=== PATIENT | female | born 1940 | race Caucasian/White ===

== ENCOUNTER 2016-10-04 15:19 | Emergency (ER) | payer MEDICAID ==
[~2016-10-04] VITALS: Wt 60.0 kg
[~2016-10-04 15:19] MED LIST: IBUP200C11
[2016-10-04] MEDS ORDERED: ALBU18HF INHALATION (16:45)
[2016-10-04] MEDS ORDERED: AZIT250T94 PO (16:45)
[2016-10-04] MEDS ORDERED: ACET325T33 PO (16:45)
--- NOTE | 2016-10-04 16:49 | ERD ---
ER Documentation Chief Complaint Date/Time DATE: 10/04/16 TIME: 16:47 Chief Complaint FEVER AND COUGH FOR THE PAST 3 WKS. NO DISTRESS. HEADACHE NOTED HPI Patient is a 76-year-old female with hypertension who presents with cough. She has had 2 weeks of cough that has productive sputum with phlegm. She has fever as well. She is ambulatory and in no respiratory distress. She tried broncholin without any help. She was brought in by her daughter. She does not currently have a primary doctor. ROS All systems reviewed and are negative except as per history of present illness. Medications Home Meds Active Scripts Albuterol Sulfate* (Ventolin HFA*) 18 Gm Hfa.aer.ad, 2 PUFF INHALATION Q4H, #1 INHALER Prov:KAY BANG MD 10/04/16 Acetaminophen* (Tylenol*) 325 Mg Tablet, 2 TAB PO Q8 Y for PAIN AND OR ELEVATED TEMP, #20 TAB Prov:KAY BANG MD 10/04/16 Azithromycin* (Zithromax*) 250 Mg Tablet, 250 MG PO DAILY for 4 Days, TAB Prov:KAY BANG MD 10/04/16 Reported Medications Ibuprofen* (Advil*) 200 Mg Capsule 09/18/10 Allergies Allergies: Coded Allergies: Penicillins (Verified Allergy, Unknown, RASHES, GI UPSET, 09/18/10) PMhx/Soc Positive for hypertension Anesthesia Reaction: No Hx Neurological Disorder: No Hx Respiratory Disorders: No Hx Cardiac Disorders: No Hx Psychiatric Problems: No Hx Miscellaneous Medical Probl: No Hx Alcohol Use: No Hx Substance Use: No Hx Tobacco Use: No FmHx Family History: diabetes Physical Exam Vitals Vital Signs Date Time Temp Pulse Resp B/P Pulse Ox O2 Delivery O2 Flow Rate FiO2 10/04/16 16:04 100.9 102 21 138/79 98 Physical Exam Const: No acute distress Head: Atraumatic Eyes: Normal Conjunctiva ENT: Normal External Ears, Nose and Mouth. Neck: Full range of motion..~ No meningismus. Resp: Clear lung on the right, the patient has some mild wheezing to the left lung diffusely, there is no retractions or accessory muscle use Cardio: Regular rate and rhythm, no murmurs Abd: Soft, non tender, non distended. Normal bowel sounds Skin: No petechiae or rashes Back: No midline or flank tenderness Ext: No cyanosis, or edema Neur: Awake and alert Psych: Normal Mood and Affect Results 24 hrs Current Medications Medications (Trade) Dose Ordered Sig/Lona Route PRN Reason Start Time Stop Time Status Last Admin Dose Admin Acetaminophen (Tylenol Tab) 650 mg ONCE ONCE PO 10/04/16 17:00 3 17:01 Azithromycin (Zithromax) 500 mg ONCE ONCE PO 10/04/16 17:00 10/04/16 17:01 Procedures/[facility] Patient is a 76-year-old female who presents with what appears to be an acute bronchitis. She has fever and cough with wheezing in the left lung. The patient has no respiratory distress or accessory muscle use. She is well- appearing and ambulatory in the ER. I believe outpatient management is appropriate. The patient will be given Tylenol for her fever as well as a first dose of Zithromax. I will discharge the patient with a prescription for Tylenol, Zithromax, and Ventolin. At this point I doubt pneumonia or pulmonary embolism. I believe outpatient management is appropriate but the patient will need close follow-up with the local clinics within 24-48 hours. She can return sooner for any worsening symptoms. The family understands the plan and is okay for discharge at this time. Departure Diagnosis: Primary Impression: Bronchitis Additional Impression: Cough Condition: Fair Patient Instructions: Bronchitis With Wheezing (Adult) [facility] Usted se ribeiro hecho un examen mdico de control que le indica que no est en yg condicin que requiera tratamiento urgente en el Departamento de Emergencia. Un estudio ms profundo y el tratamiento de cherry condicin pueden esperar sin ningn riesgo hasta que usted sea atendida/o en el consultorio de cherry mdico o yg cl maren. Es responsabilidad suya arreglar yg janusz para el seguimiento del anomy. MANEJO DE CONDICIONES NO URGENTES EN EL FUTURO 1) Si usted tiene un mdico de atencin primaria: Usted debera llamar a cherry mdico de atencin primaria antes de venir al departamento de emergencia. Despus de las horas de consultorio, cherry doctor o cherry asociado/a est disponible por telfono. El mdico o enfermero de nirali en el servicio telefnico puede asesorarle por dov medio para atender el problema, o naomy contrario se puede programar yg janusz. 2) Si usted no tiene un mdico de atencin primaria: Llame al mdico o clnica de referencia que aparece abajo ant las horas de consultorio para hacer yg janusz para que le vean. CLINICAS: [facility] [phone] [facility] [phone] [facility] [phone] [place] [address] [phone] [place] [phone] [place] [id number] [phone] Additional Instructions: Llame al doctor MAANA y kristy yg JANUSZ PARA DENTRO DE 1-2 FERGUSON.Dgale a la secretaria que nosotros le instruimos hacer esta janusz.Avise o llame si cherry condicin se empeora antes de la janusz. Regresa aqui si peor o no mejor. KAY BANG MD Oct 04, 2016 16:49
[2016-10-04] MEDS ORDERED: AZITHROMYCIN 250 MG TAB PO ONE (17:00)
[2016-10-04] MEDS ORDERED: ACETAMINOPHEN 325 MG TAB PO ONE (17:00)
== END 2016-10-04 17:14 | disposition home or self-care (01) ==
LOC: FTE 15:19
DX: J20.9 Acute bronchitis, unspecified (principal); I10 Essential (primary) hypertension
CPT/HCPCS: Z7610 ×2; 99284

== ENCOUNTER 2017-02-26 16:41 | Emergency (ER) | payer MEDICAID ==
[~2017-02-26] VITALS: Ht 152.4 cm; Wt 80.0 kg
[~2017-02-26 16:41] MED LIST changes: +ACET325T33 PO; +ALBU18HF INHALATION; +AZIT250T94 PO
[2017-02-26 16:45] VITALS: Ht 152.4 cm; Wt 80.0 kg
--- NOTE | 2017-02-26 18:06 | ERD ---
ER Documentation Chief Complaint Date/Time DATE: 02/26/17 TIME: 17:59 Chief Complaint NON TRAUMATIC LEG PAIN FOR PAST WEEK (KISHA FELIX) HPI This 76-year-old Polish-speaking female presents to emergency department with complaint of chronic right knee pain worsening today, patient denies any injury or fall, states that pt bought medication from a stranger , dicloxacillin and Neurontin, for pain with no change in symptoms. Patient states she has not seen her primary care physician, pain is in her calf, behind her knee, and worse with flexion and extension. Patient is ambulating with a cane, unable to bend knee observed shuffling slowly when asked to ambulate across the room. Patient denies any recent travel, prolonged sitting on buses or airplane. History of DVT, patient denies taking any anticoagulation medication, denies aspirin. (KISHA FELIX) ROS All systems reviewed and are negative except as per history of present illness. (KISHA FELIX) Medications Home Meds Active Scripts Hydrocodone/Acetaminophen (Warren 5-325 Tablet) 1 Each Tablet, 1 TAB PO Q6H Y for PAIN, #20 TAB Prov:KISHA FELIX 02/26/17 Albuterol Sulfate* (Ventolin HFA*) 18 Gm Hfa.aer.ad, 2 PUFF INHALATION Q4H, #1 INHALER Prov:KAY BANG MD 10/04/16 Acetaminophen* (Tylenol*) 325 Mg Tablet, 2 TAB PO Q8 Y for PAIN AND OR ELEVATED TEMP, #20 TAB Prov:KAY BANG MD 10/04/16 Azithromycin* (Zithromax*) 250 Mg Tablet, 250 MG PO DAILY for 4 Days, TAB Prov:KAY BANG MD 10/04/16 Reported Medications Ibuprofen* (Advil*) 200 Mg Capsule 09/18/10 Allergies Allergies: Coded Allergies: Penicillins (Verified Allergy, Unknown, RASHES, GI UPSET, 09/18/10) PMhx/Soc Anesthesia Reaction: No Hx Neurological Disorder: No Hx Respiratory Disorders: No Hx Cardiac Disorders: No Hx Psychiatric Problems: No Hx Miscellaneous Medical Probl: Yes (AO) Hx Alcohol Use: No Hx Substance Use: No Hx Tobacco Use: No Smoking Status: Never smoker (KISHA FELIX) Physical Exam Vitals Vital Signs Date Time Temp Pulse Resp B/P Pulse Ox O2 Delivery O2 Flow Rate FiO2 02/26/17 16:45 98.2 80 18 160/85 98 (HERBERT LIANG DO) Vitals Vitals stable, triage notes reviewed, blood pressure noted 160/85. (ELVIRA,MELODY) Physical Exam Const: Obese female obvious discomfort no acute distress Head: Atraumatic Eyes: Normal Conjunctiva PERRLA, EOMI ENT: Neck: Resp: Respirations even and unlabored no respiratory distress Cardio: S1-S2, no S3-S4 Abd: Skin: Back: Ext: Lower Extremity - bilateral: Skin: No laceration or obvious bony deformity Compartments: Soft Motor: Decreased range of motion with flexion, full extension , full movement of hip with abduction and abduction, full ankle rotation. Sensation: Intact to light touch superior inferior and lateral surfaces. Bones: Patellar tenderness, post patellar tenderness, positive Homans sign Joints: No effusion or laxity Pulses/Perfusion: 2+ DP, Capillary refill < 2 seconds Neur: Awake and alert Psych: Normal Mood and Affect (ELVIRA,KISHA) Results 24 hrs Current Medications Medications (Trade) Dose Ordered Sig/Lona Route PRN Reason Start Time Stop Time Status Last Admin Dose Admin Acetaminophen/ Hydrocodone Bitart (Warren (5/325)) 1 tab ONCE ONCE PO 02/26/17 18:30 02/26/17 18:31 DC 02/26/17 19:13 (HERBERT LIANG DO) Procedures/MDM PROCEDURE: US DVT. CLINICAL INDICATION: Right lower extremity pain and swelling. TECHNIQUE: Multiple longitudinal and transverse images of the right lower extremity veins were obtained with palacios scale and color Doppler imaging. 2D grayscale measurements with compression, color Doppler flow, and augmentation was performed. The calf veins were interrogated as well. COMPARISON: No prior studies are available for comparison. FINDINGS: The right common femoral, superficial femoral and popliteal veins are normally compressible throughout. Color flow demonstrates normal filling of the vessel. Normal waveforms are visualized and there is normal response to augmentation. The calf veins are visualized and are equally unremarkable. IMPRESSION: 1. No evidence of a deep vein thrombosis involving the right lower extremity. Electronically viewed and signed by .Suni Hong MD, on 02/26/2017 19: 36 02/26/2017 7:22:58 PM aPnkaj Tam MD PROCEDURE: X-ray right knee CLINICAL INDICATION: Unable to ambulate. TECHNIQUE: AP, tunnel and lateral views of the right knee. COMPARISON: None. FINDINGS: Mild to moderate tricompartment degenerative changes with marginal osteophytes, greater in the patellofemoral joint compartment. There is lateral subluxation of the tibial plateau on the distal articular femur with joint space narrowing, mildly greater in the lateral joint compartment. There is no acute fracture or dislocation. A 9 mm osteochondral body projects over the lateral aspect of the medial joint compartment on the tunnel view. MRI examination may be of further use. No evident joint effusion. Soft tissues unremarkable. IMPRESSION: 1. Mild to moderate tricompartment degenerative changes, without acute fracture. 2. A 9 mm osteochondral body projects over the lateral aspect of the medial joint compartment on the tunnel view. 3. An MRI examination may be of further use. Electronically viewed and signed by Francis Tam Physician on 02/26/2017 19:23 This 76-year-old female presents to emergency department for evaluation of right knee pain. Pain is both anterior and posterior located. Pain is in reproducible and calf, positive Homans sign, venous Doppler ordered to rule out DVT, patient ambulating with cane and able to flex knee. Walking with a shuffle. Suspected degenerative joint joint disease, no ligamentous injury is suspected at this time. Without injury no patella fracture or bone contusion, or patella dislocation is suspected. Patient has a x-ray of right knee, treated with 5/325 of Warren, while in emergency department. Venous Doppler findings as followed; the right common femoral superficial femoral and popliteal veins are normally compressible throughout color flow demonstrates normal filling of the vessel. Normal waveforms are visualized and there is normal response to augmentation. The calf veins are visualized and equally unremarkable. No evidence of deep vein thrombosis involving the right lower extremity. Right knee x-ray findings as follows mild to moderate tricompartment degenerative changes with marginal osteophytes greater in the patella for malar joint compartment. There is a lateral subluxation of the tibial plateau on the distal articular femur with joint space narrowing mildly greater in the lateral joint compartment there is no acute fracture or dislocation. An 9 mm osteochondral body projects over the lateral aspect of the medial joint compartment on the tunnel view. MRI examination may be further useful. No evidence of joint effusion soft tissue is unremarkable. This case discussed with supervising physician Dr. Liang Patient will be discharged home with a knee immobilizer, and walker. Warren 1 tab p.o. every 6 hours as needed pain count of 20 given. Patient to follow primary care physician for referral to orthopedic surgeon. I feel the patient is stable for discharge at this time. I have discussed results, examination findings, the treatment plan with the patient and family present prior to discharge. Indications for emergent reevaluation, side effects of medication were also discussed. All questions were answered. Patient verbalizes understanding and agrees with plan of care. (KISHA FELIX) I supervised the care of this patient with advanced care provider. Patient has no new symptoms but does have significant pain on use of right leg. X-ray does show that she has a bony growth inside of the joint space as the likely cause. Believe she should follow-up with an orthopedist as there is no acute issue I do not think she requires acute admission at this time. Attempt was made to find a walker for the patient although none was available in the hospital. We are giving her prescription for a walker. (HERBERT LIANG DO) Departure Diagnosis: Primary Impression: DJD (degenerative joint disease) of knee Osteoarthritis type: unspecified Laterality: right Qualified Code: M17.11 - Osteoarthritis of right knee, unspecified osteoarthritis type Condition: Good Patient Instructions: Knee Immobilizer, Osteoarthritis Additional Instructions: Thank you for for coming to [facility] for your care today. Please ask your nurse or provider if you have questions about your care today and do not leave until all your questions have been answered. Please use any medications given as directed and follow-up with your doctor (or the doctor you were referred to) in the next 2-3 days. If you do not have a primary care doctor you may follow up at the [facility] (listed below). You may also use motrin and tylenol as needed for fever and/or pain unless instructed otherwise by your provider or nurse. Indications for more urgent follow-up have been discussed, but you may return to the Emergency Department at ANY time for any worrisome or worsening symptoms. If you have abdominal pain, please know that no test or exam you received is perfect and you should follow up within 8 hours for continued pain. If you had any imaging studies today, such as an X-Ray or CT Scan, these studies will be reviewed later by a radiologist. You will be called if there are important findings that were not identified today, so make sure the contact information you provided at registration is correct. If you received any narcotic pain control medicine today, such as Vicodin, Morphine or Dilaudid, your coordination and judgment may be affected for a number of hours. Please do not drive or operate heavy machinery, and you may want someone to assist you at home. If you were given a prescription for narcotic medication, be aware that it is very addictive- use sparingly and only if necessary. KISHA FELIX Feb 26, 2017 18:06 HERBERT LIANG DO Feb 26, 2017 21:05
[2017-02-26] MEDS ORDERED: HYDROCODONE/APAP (5/325) TAB PO ONE (18:30)
--- NOTE | 2017-02-26 19:21 | RADRPT ---
AMENDMENT: 02/26/2017 7:22:58 PM Pankaj Tam MD ADDENDUM: RPTAT: UU PROCEDURE: X-ray right knee CLINICAL INDICATION: Unable to ambulate. TECHNIQUE: AP, tunnel and lateral views of the right knee. COMPARISON: None. FINDINGS: Mild to moderate tricompartment degenerative changes with marginal osteophytes, greater in the napoles lofemoral joint compartment. There is lateral subluxation of the tibial plateau on the distal artic ular femur with joint space narrowing, mildly greater in the lateral joint compartment. There is no acute fracture or dislocation. A 9 mm osteochondral body projects over the lateral aspect of the m edial joint compartment on the tunnel view. MRI examination may be of further use. No evident join t effusion. Soft tissues unremarkable. IMPRESSION: 1. Mild to moderate tricompartment degenerative changes, without acute fracture. 2. A 9 mm osteochondral body projects over the lateral aspect of the medial joint compartment on th e tunnel view. 3. An MRI examination may be of further use. Physician Danae Date Time Electronically viewed and signed by Physician Danae on 02/26/2017 19:23 /
--- NOTE | 2017-02-26 19:36 | RADRPT ---
PROCEDURE: US DVT. CLINICAL INDICATION: Right lower extremity pain and swelling. TECHNIQUE: Multiple longitudinal and transverse images of the right lower extremity veins were obt ained with palacios scale and color Doppler imaging. 2D grayscale measurements with compression, color Doppler flow, and augmentation was performed. The calf veins were interrogated as well. COMPARISON: No prior studies are available for comparison. FINDINGS: The right common femoral, superficial femoral and popliteal veins are normally compressible througho ut. Color flow demonstrates normal filling of the vessel. Normal waveforms are visualized and ther e is normal response to augmentation. The calf veins are visualized and are equally unremarkable. IMPRESSION: 1. No evidence of a deep vein thrombosis involving the right lower extremity. RPTAT: HFN .Suni Hong MD, MD Date Time Electronically viewed and signed by .Suni Hong MD, MD on 02/26/2017 19:36 .N/
[2017-02-26] MEDS ORDERED: HYDR-906 PO (20:13)
[2017-02-26 21:19] VITALS: BP 148/77; PULSE 68; RESP 18; TEMP 98.3
== END 2017-02-26 21:20 | disposition home or self-care (01) ==
LOC: FTE 16:41
DX: M17.11 Unilateral primary osteoarthritis, right knee (principal)
CPT/HCPCS: 29505; 73562; 93971; Z7502; Z7610

== ENCOUNTER 2017-04-07 09:36 | Emergency (ER) | payer MEDICAID ==
[~2017-04-07] VITALS: Ht 147.3 cm; Wt 80.0 kg
[~2017-04-07 09:36] MED LIST changes: +HYDR-906 PO
[2017-04-07 09:40] VITALS: Ht 147.3 cm; Wt 80.0 kg
[2017-04-07] MEDS ORDERED: ACET500C5 PO (11:11)
--- NOTE | 2017-04-07 14:08 | ERD ---
ER Documentation Chief Complaint Date/Time DATE: 04/07/17 TIME: 14:04 Chief Complaint bilateral leg pain x 1 week no injury HPI 76-year-old male patient with no significant past medical history presents to the ED complaining of bilateral knee pain that started intermittently for 3 years. Patient was seen here on February 26, 2017 for similar type of pain. Reports that the pain is worse with walking. Patient received an x-ray and ultrasound which was negative. Patient had degenerative knee disease, likely osteoarthritis. Patient reports that taking [place] does help with her pain. Denies any injuries or trauma. Denies falling, trauma or injuries. Denies any fever, chills, loss of sensation, loss of range of motion, increased redness or swelling. Denies any chest pain, shortness of breath, ROS All systems reviewed and are negative except as per history of present illness. Medications Home Meds Active Scripts Acetaminophen* (Tylophen*) 500 Mg Capsule, 1 CAP PO Q6H Y for PAIN AND OR ELEVATED TEMP, #20 CAP Prov:SREEDHAR SHEA PA-C 04/07/17 Hydrocodone/Acetaminophen ([place] 5-325 Tablet) 1 Each Tablet, 1 TAB PO Q6H Y for PAIN, #20 TAB Prov:ELVIRA,KISHA 02/26/17 Albuterol Sulfate* (Ventolin HFA*) 18 Gm Hfa.aer.ad, 2 PUFF INHALATION Q4H, #1 INHALER Prov:KAY BANG MD 10/04/16 Acetaminophen* (Tylenol*) 325 Mg Tablet, 2 TAB PO Q8 Y for PAIN AND OR ELEVATED TEMP, #20 TAB Prov:KAY BANG MD 10/04/16 Azithromycin* (Zithromax*) 250 Mg Tablet, 250 MG PO DAILY for 4 Days, TAB Prov:KAY BANG MD 10/04/16 Reported Medications Ibuprofen* (Advil*) 200 Mg Capsule 09/18/10 Allergies Allergies: Coded Allergies: Penicillins (Verified Allergy, Unknown, RASHES, GI UPSET, 09/18/10) PMhx/Soc Anesthesia Reaction: No Hx Neurological Disorder: No Hx Respiratory Disorders: No Hx Cardiac Disorders: No Hx Psychiatric Problems: No Hx Miscellaneous Medical Probl: Yes (AO) Hx Alcohol Use: No Hx Substance Use: No Hx Tobacco Use: No Physical Exam Vitals Vital Signs Date Time Temp Pulse Resp B/P Pulse Ox O2 Delivery O2 Flow Rate FiO2 04/07/17 09:40 97.8 94 18 124/67 96 Physical Exam Const: Fet-uch-[id number], well-nourished. In no acute distress. Head: Atraumatic, normocephalic Eyes: Normal Conjunctiva without injection ENT: Normal external ear, nose and mouth. Neck: Full range of motion. No meningismus. Resp: Clear to auscultation bilaterally. No wheezing, rhonchi, rales, or crackles. No accessory muscle use. No retractions. Cardio: Regular rate and rhythm, no murmurs Skin: No petechiae or rashes Back: No midline tenderness. No CVA tenderness. Ext: No cyanosis, or edema. Cap refill less than 2 seconds. Distal pulses intact bilaterally. Bilateral knee tenderness to palpation of the patella. No erythema or edema. No tenderness to palpation of the bilateral calves. No palpable cords. No deformities. Full range of motion with flexion, extension. Uses a walker to help with ambulation. No warmth to touch. Neur: Awake and alert. Normal gait and coordination. Muscle strength 5/5. Sensation intact bilaterally. Psych: Normal Mood and Affect Procedures/MDM A 76-year-old female patient with a past mental history of hyperlipidemia presents to the ED complaining of bilateral knee pain that radiates down her feet. Patient is afebrile and nontoxic-appearing. Patient has normal vital signs. Patient just received a x-ray last month which showed degenerative changes of her knee. Patient is experiencing pain of both of her knees likely secondary to osteoarthritis. Neurovascularly intact. Patient's extremity symptoms have stabilized while they have been evaluated in the department and are appropriate for outpatient follow up. No evidence of fractures, dislocations , compartment syndrome, neurologic injury, vascular injury, open joint, open fracture, tendon laceration, septic arthritis, osteomyelitis, DVT, foreign body , or other emergent conditions. This was discussed with my supervising physician, Dr. Rodriguez who agreed with the management and discharge plan. Discharge medications: Tylenol Follow up with primary care physician in 1-2 days. Instructed patient to return to the ED sooner for any worsening symptoms. Patient's questions were answered. Patient understood and agreed with discharge plan. Patient discharged stable. Departure Diagnosis: Primary Impression: Bilateral knee pain Chronicity: acute Qualified Code: M25.561 - Acute pain of both knees Condition: Stable Patient Instructions: What Is Arthritis? Referrals: SWATI MORALES [facility] () Brenda se ribeiro hecho un examen mdico de control que le indica que no est en yg condicin que requiera tratamiento urgente en el Departamento de Emergencia. Un estudio ms profundo y el tratamiento de cherry condicin pueden esperar sin ningn riesgo hasta que usted sea atendida/o en el consultorio de cherry mdico o yg cl maren. Es responsabilidad suya arreglar yg janusz para el seguimiento del naomy. MANEJO DE CONDICIONES NO URGENTES EN EL FUTURO 1) Si usted tiene un mdico de atencin primaria: Usted debera llamar a cherry mdico de atencin primaria antes de venir al departamento de emergencia. Despus de las horas de consultorio, cherry doctor o cherry asociado/a est disponible por telfono. El mdico o enfermero de nirali en el servicio telefnico puede asesorarle por dov medio para atender el problema, o naomy contrario se puede programar yg janusz. 2) Si usted no tiene un mdico de atencin primaria: Llame al mdico o clnica de referencia que aparece abajo ant las horas de consultorio para hacer yg janusz para que le vean. CLINICAS: [facility] [phone] [facility] [phone] [facility] [phone] [facility]. [facility] [phone] [facility] [phone] [facility]. [phone] [address] [facility] () [place] se ribeiro hecho un examen mdico de control que le indica que no est en yg condicin que requiera tratamiento urgente en el Departamento de Emergencia. Un estudio ms profundo y el tratamiento de cherry condicin pueden esperar sin ningn riesgo hasta que usted sea atendida/o en el consultorio de cherry mdico o yg cl maren. Es responsabilidad suya arreglar yg janusz para el seguimiento del naomy. MANEJO DE CONDICIONES NO URGENTES EN EL FUTURO 1) Si usted tiene un mdico de atencin primaria: Usted debera llamar a cherry mdico de atencin primaria antes de venir al departamento de emergencia. Despus de las horas de consultorio, cherry doctor o cherry asociado/a est disponible por telfono. El mdico o enfermero de nirali en el servicio telefnico puede asesorarle por dov medio para atender el problema, o naomy contrario se puede programar yg janusz. 2) Si usted no tiene un mdico de atencin primaria: Llame al mdico o condado institucions de referencia que aparece abajo ant las horas de consultorio para hacer yg janusz para que le vean. SI USTED NO PUEDE PAGAR PARA ERIC UN MEDICO puede ir a: [facility] [address] [place] [address] [facility] [address] [place] [address] [facility] [address] [place] [address] [facility] [address] [place] [address] [facility]ENT [facility]/SPECIALTIES Additional Instructions: Llame al doctor MAANA y kristy yg JANUSZ PARA DENTRO DE 1-2 FERGUSON.Dgale a la secretaria que nosotros le instruimos hacer esta janusz.Avise o llame si cherry condicin se empeora antes de la janusz. Regresa aqui si peor o no mejor. SREEDHAR SHEA PA-C Apr 07, 2017 14:08
== END 2017-04-07 11:35 | disposition home or self-care (01) ==
LOC: FTE 09:36
DX: M25.561 Pain in right knee (principal); M25.562 Pain in left knee
CPT/HCPCS: 99283

== ENCOUNTER 2017-09-15 10:24 | Emergency (ER) | END 2017-09-15 10:55 | disposition home or self-care (01) ==

== ENCOUNTER 2018-07-02 11:39 | Emergency (ER) | END 2018-07-02 13:36 | disposition home or self-care (01) ==

== ENCOUNTER 2018-07-06 12:16 | Emergency (ER) | END 2018-07-06 15:30 | disposition home or self-care (01) ==